=== PATIENT | male | born 1970 | race Two or more races ===

== ENCOUNTER 2018-10-17 19:46 | Inpatient (IN) | payer BC ==
[2018-10-17] MEDS ORDERED: LACTULOSE 30ML CUP PO (21:00)
[2018-10-17] MEDS ORDERED: ZOLPIDEM 5 MG TAB PO (21:00)
[2018-10-17] MEDS: CHLORHEXIDINE GLUCONATE 15 ML UD CUP MT (21:00)
[2018-10-17] MEDS ORDERED: ONDANSETRON 4 MG INJ IV (21:00)
[2018-10-17] MEDS ORDERED: BISACODYL 10 MG SUPP PR (21:00)
[2018-10-17] MEDS: SENNA TAB PO (21:00)
[2018-10-17] MEDS: DOCUSATE SODIUM 100 MG CAP PO (21:00)
[2018-10-17] MEDS: METOPROLOL 25 MG TAB PO (21:00)
[2018-10-17] MEDS ORDERED: PENDING SANTYL ORDER FOR WOUND CARE XX (21:30)
[2018-10-17] MEDS: ATORVASTATIN 10 MG TAB PO (22:02)
[2018-10-17] MEDS: QUETIAPINE 100 MG TAB PO (22:04)
[2018-10-17 22:37] LABS: ADD UMIC NO; UR ASCORBIC ACID NEGATIVE (NEGATIVE); UR BILIRUBIN (Dip) NEGATIVE (NEGATIVE); UR BLOOD (Dip) NEGATIVE (NEGATIVE); UR CLARITY CLEAR (CLEAR); UR COLOR YELLOW (YELLOW); UR GLUCOSE (Dip) NEGATIVE (NEGATIVE); UR KETONES (Dip) NEGATIVE (NEGATIVE); UR LEUKOCYTE ESTERASE (Dip) NEGATIVE Leu/ul (NEGATIVE); UR NITRITE (Dip) NEGATIVE (NEGATIVE); UR SPECIFIC GRAVITY (Dip) 1.018 (1.003-1.030); UR TOTAL PROTEIN (Dip) NEGATIVE (NEGATIVE); UR UROBILINOGEN (Dip) NEGATIVE (NEGATIVE)
[2018-10-18] MEDS: LANSOPRAZOLE (SOLTAB) 30 MG TAB PO (06:49)
[2018-10-18 07:34] LABS: ADD MAN DIFF? NO
[2018-10-18 07:46] LABS: WHITE BLOOD COUNT 7.8 10^3/ul (4.8-10.8)
[2018-10-18 07:46] LABS: BASOPHILS % 0.3 % (0.0-2.0); EOSINOPHILS # 0.2 10^3/ul (0.0-0.5); EOSINOPHILS % 2.2 % (0.0-7.0); HEMATOCRIT 30.4 % (42.0-52.0); HEMOGLOBIN 9.7 g/dl (14.0-18.0); LYMPHOCYTES # 4.3 10^3/ul (0.8-2.9); LYMPHOCYTES % 55.9 % (15.0-51.0); MEAN CORPUSCULAR HEMOGLOBIN 31.3 pg (29.0-33.0); MEAN CORPUSCULAR HGB CONC 31.9 g/dl (32.0-37.0); MEAN CORPUSCULAR VOLUME 98.1 fl (82.0-101.0); MEAN PLATELET VOLUME 10.3 fl (7.4-10.4); MONOCYTE # 0.5 10^3/ul (0.3-0.9); MONOCYTES % 6.8 % (0.0-11.0); NEUTROPHIL # 2.7 10^3/ul (1.6-7.5); NEUTROPHILS % 34.5 % (39.0-77.0); PLATELET COUNT 317 10^3/UL (140-415); RED CELL DISTRIBUTION WIDTH 15.7 % (11.5-14.5)
[2018-10-18 08:09] LABS: ALANINE AMINOTRANSFERASE 13 IU/L (13-69); ALBUMIN 3.4 g/dl (3.3-4.9); ALBUMIN/GLOBULIN RATIO 0.97; ALKALINE PHOSPHATASE 76 IU/L (42-121); ANION GAP 6 (5-13); ASPARTATE AMINO TRANSFERASE 20 IU/L (15-46); BILIRUBIN,INDIRECT 0.2 mg/dl (0-1.1); BILIRUBIN,TOTAL 0.2 mg/dl (0.2-1.3); BLOOD UREA NITROGEN 27 mg/dl (7-20); CALCIUM 9.7 mg/dl (8.4-10.2); CARBON DIOXIDE 28 mmol/L (21-31); CHLORIDE 104 mmol/L (97-110); CREATININE 0.78 mg/dl (0.61-1.24); Estimated GFR > 60 mL/min (>60); GLUCOSE 95 mg/dl (70-220); POTASSIUM 3.9 mmol/L (3.5-5.1); SODIUM 138 mmol/L (135-144); TOTAL PROTEIN 6.9 g/dl (6.1-8.1)
[2018-10-18] MEDS: ELVITEGR/COBICIST/EMTRIC/TENOF 1 EACH TABLET PO (08:48)
[2018-10-18] MEDS: METOPROLOL 25 MG TAB PO ×2 (08:49→20:38)
[2018-10-18] MEDS: ENOXAPARIN 40 MG/0.4 ML SYG SC (08:53)
[2018-10-18] MEDS: AMLODIPINE 5 MG TAB PO (08:57)
[2018-10-18] MEDS: DOCUSATE SODIUM 100 MG CAP PO ×2 (09:00→20:40)
[2018-10-18] MEDS: QUETIAPINE 100 MG TAB PO ×2 (09:00→20:35)
[2018-10-18] MEDS: ATORVASTATIN 10 MG TAB PO (20:35)
[2018-10-18] MEDS: SENNA TAB PO (20:40)
[2018-10-19] MEDS: LANSOPRAZOLE (SOLTAB) 30 MG TAB PO (06:22)
[2018-10-19] MEDS: DOCUSATE SODIUM 100 MG CAP PO ×2 (09:00→21:00)
[2018-10-19] MEDS: QUETIAPINE 100 MG TAB PO ×2 (09:00→21:15)
[2018-10-19] MEDS: ELVITEGR/COBICIST/EMTRIC/TENOF 1 EACH TABLET PO (09:59)
[2018-10-19] MEDS: METOPROLOL 25 MG TAB PO ×2 (10:00→21:15)
[2018-10-19] MEDS: AMLODIPINE 5 MG TAB PO (10:00)
[2018-10-19] MEDS: ENOXAPARIN 40 MG/0.4 ML SYG SC (10:01)
[2018-10-19] MEDS: SENNA TAB PO (21:00)
[2018-10-19] MEDS: ATORVASTATIN 10 MG TAB PO (21:14)
[2018-10-20] MEDS: LANSOPRAZOLE (SOLTAB) 30 MG TAB PO (06:09)
[2018-10-20] MEDS: AMLODIPINE 5 MG TAB PO (09:21)
[2018-10-20] MEDS: QUETIAPINE 100 MG TAB PO ×2 (09:21→20:51)
[2018-10-20] MEDS: ELVITEGR/COBICIST/EMTRIC/TENOF 1 EACH TABLET PO (09:21)
[2018-10-20] MEDS: DOCUSATE SODIUM 100 MG CAP PO ×2 (09:21→20:56)
[2018-10-20] MEDS: METOPROLOL 25 MG TAB PO ×2 (09:22→20:57)
[2018-10-20] MEDS: ENOXAPARIN 40 MG/0.4 ML SYG SC (09:28)
[2018-10-20 12:02] LABS: LYMPHOCYTE - % CD4 (HELPER) 11 % (30-61); LYMPHOCYTE - %CD8 (SUPPRESSOR) 76 % (12-42); LYMPHOCYTE - ABSOLUTE 4842 cells/uL (850-3900); LYMPHOCYTE - ABSOLUTE CD4 545 cells/uL (490-1740); LYMPHOCYTE - ABSOLUTE CD8 3698 cells/uL (180-1170); LYMPHOCYTE - CD4/CD8 RATIO 0.15 (0.86-5.00)
[2018-10-20] MEDS: ATORVASTATIN 10 MG TAB PO (20:51)
[2018-10-20] MEDS: SENNA TAB PO (20:58)
[2018-10-21] MEDS: LANSOPRAZOLE (SOLTAB) 30 MG TAB PO (06:34)
[2018-10-21] MEDS: IOHEXOL 100 ML (07:00)
[2018-10-21] MEDS: SOD CHLORIDE 0.9% 100 ML (07:00)
[2018-10-21] MEDS: AMLODIPINE 5 MG TAB PO (08:43)
[2018-10-21] MEDS: ELVITEGR/COBICIST/EMTRIC/TENOF 1 EACH TABLET PO (08:43)
[2018-10-21] MEDS: QUETIAPINE 100 MG TAB PO ×2 (08:43→21:16)
[2018-10-21] MEDS: METOPROLOL 25 MG TAB PO ×2 (08:43→21:00)
[2018-10-21] MEDS: DOCUSATE SODIUM 100 MG CAP PO ×2 (08:43→21:00)
[2018-10-21] MEDS: ACETAMINOPHEN 325 MG TAB PO (19:02)
[2018-10-21] MEDS: SENNA TAB PO (21:00)
[2018-10-21] MEDS: ATORVASTATIN 10 MG TAB PO (21:16)
[2018-10-22] MEDS: LANSOPRAZOLE (SOLTAB) 30 MG TAB PO (06:34)
[2018-10-22 06:57] LABS: ADD MAN DIFF? NO
[2018-10-22 07:01] LABS: WHITE BLOOD COUNT 11.7 10^3/ul (4.8-10.8)
[2018-10-22 07:01] LABS: BASOPHILS % 0.3 % (0.0-2.0); EOSINOPHILS # 0.2 10^3/ul (0.0-0.5); EOSINOPHILS % 1.7 % (0.0-7.0); HEMATOCRIT 32.8 % (42.0-52.0); HEMOGLOBIN 10.5 g/dl (14.0-18.0); LYMPHOCYTES # 4.6 10^3/ul (0.8-2.9); LYMPHOCYTES % 39.5 % (15.0-51.0); MEAN CORPUSCULAR HEMOGLOBIN 31.3 pg (29.0-33.0); MEAN CORPUSCULAR VOLUME 97.9 fl (82.0-101.0); MEAN PLATELET VOLUME 9.9 fl (7.4-10.4); MONOCYTE # 0.7 10^3/ul (0.3-0.9); MONOCYTES % 5.8 % (0.0-11.0); NEUTROPHIL # 6.1 10^3/ul (1.6-7.5); NEUTROPHILS % 52.4 % (39.0-77.0); PLATELET COUNT 316 10^3/UL (140-415); RED BLOOD COUNT 3.35 10^6/ul (4.70-6.10); RED CELL DISTRIBUTION WIDTH 15.9 % (11.5-14.5)
[2018-10-22 07:29] LABS: ANION GAP 7 (5-13); BLOOD UREA NITROGEN 22 mg/dl (7-20); CALCIUM 9.7 mg/dl (8.4-10.2); CARBON DIOXIDE 29 mmol/L (21-31); CHLORIDE 104 mmol/L (97-110); CREATININE 0.83 mg/dl (0.61-1.24); Estimated GFR > 60 mL/min (>60); GLUCOSE 93 mg/dl (70-220); MAGNESIUM 1.8 mg/dl (1.7-2.5); PHOSPHORUS 3.4 mg/dl (2.5-4.9); POTASSIUM 3.9 mmol/L (3.5-5.1); SODIUM 140 mmol/L (135-144)
[2018-10-22] MEDS: AMLODIPINE 5 MG TAB PO (09:00)
[2018-10-22] MEDS: DOCUSATE SODIUM 100 MG CAP PO ×2 (09:00→20:30)
[2018-10-22] MEDS: QUETIAPINE 100 MG TAB PO ×2 (09:00→20:30)
[2018-10-22] MEDS: METOPROLOL 25 MG TAB PO ×2 (09:00→20:30)
[2018-10-22] MEDS: ELVITEGR/COBICIST/EMTRIC/TENOF 1 EACH TABLET PO (09:04)
[2018-10-22] MEDS: ATORVASTATIN 10 MG TAB PO (20:30)
[2018-10-22] MEDS: SENNA TAB PO (20:30)
[2018-10-23] MEDS: LANSOPRAZOLE (SOLTAB) 30 MG TAB PO (06:31)
[2018-10-23] MEDS: METOPROLOL 25 MG TAB PO (08:45)
[2018-10-23] MEDS: DOCUSATE SODIUM 100 MG CAP PO (08:46)
[2018-10-23] MEDS: QUETIAPINE 100 MG TAB PO (08:47)
[2018-10-23] MEDS: ELVITEGR/COBICIST/EMTRIC/TENOF 1 EACH TABLET PO (09:00)
== END 2018-10-23 11:45 | disposition home health service (06) | DRG 92 ==
LOC: VRC 19:46
DX: G72.81 Critical illness myopathy (principal); G93.40 Encephalopathy, unspecified; B20 Human immunodeficiency virus [HIV] disease; K50.90 Crohn's disease, unspecified, without complications; F15.20 Other stimulant dependence, uncomplicated; I10 Essential (primary) hypertension; Z74.09 Other reduced mobility; I69.298 Other sequelae of other nontraumatic intracranial hemorrhage; H53.2 Diplopia; F41.9 Anxiety disorder, unspecified; R13.10 Dysphagia, unspecified; D64.9 Anemia, unspecified; R00.0 Tachycardia, unspecified; E78.5 Hyperlipidemia, unspecified; Z87.09 Personal history of other diseases of the respiratory system; Z86.79 Personal history of other diseases of the circulatory system; Z98.890 Other specified postprocedural states; Z86.59 Personal history of other mental and behavioral disorders; Z86.19 Personal history of other infectious and parasitic diseases; B19.20 Unspecified viral hepatitis C without hepatic coma; Z93.1 Gastrostomy status; F06.31 Mood disorder due to known physiological condition with depressive features; Z72.0 Tobacco use
CPT/HCPCS: 70496; 70551; 80048; 80053; 81003; 83735; 84100; 85025; 86360; 87081; 87086; 92507; 92523; 92610; 93306; 97110; 97112; 97116; 97163; 97166; 97530; 97535